=== PATIENT | female | born 1985 | race Caucasian/White ===

== ENCOUNTER → 2023-12-15 | Outpatient (CLI) | payer OTHER | LOC: DIA.ED 08:24 | DX: O24.419 Gestational diabetes mellitus in pregnancy, unspecified control (principal) ==

== ENCOUNTER → 2024-02-09 | Outpatient (CLI) | payer OTHER ==
[~2024-02-09] MED LIST: EUTHYROX175 MCG PO; PRENATA1 CTB PO; ZYRTEC 10MG10 MG PO
== END ==
LOC: DIA.ED 04:30
DX: O24.419 Gestational diabetes mellitus in pregnancy, unspecified control (principal)

== ENCOUNTER 2024-04-23 05:31 | Inpatient (IN) | payer OTHER ==
[~2024-04-23] VITALS: Ht 167.6 cm; Wt 107.7 kg
[2024-04-23] VITALS (17 sets, daily range): BP systolic 92–125; BP diastolic 46–106; PULSE 60–101; TEMP 97.9–98.4
--- NOTE | 2024-04-23 05:40 | NUR ---
0540 G1L0 PRIMARY ELECTIVE C/XECT TO 210. EFM ON. VS DONE. PERMITS SIGNED. IV LR STARTED AND LAB OBTAINED. STATES CONCERNS WITH FOB COMING TO UNIT TO SEE BABY. OFFERED TO BE NO INFO. UNSURE IF SHE WANTS THAT.
[2024-04-23] MEDS ORDERED: diphenhydrAMINE 50 MG/ML 1 ML VIAL IV PRN (05:45)
[2024-04-23] MEDS ORDERED: Ondansetron 4 MG/2 ML VIAL IV PRN ×2 (05:45→10:00)
[2024-04-23] MEDS ORDERED: droPERidol 2.5 MG/ML 2 ML VIAL IV PRN (05:45)
[2024-04-23] MEDS ORDERED: LR 1,000 ML IV SCH ×2 (05:45)
[2024-04-23 06:21] LABS: BASO % 0.4 % (0.0-2.0); EOS # 0.1 K/mm3 (0.0-0.7); EOS % 1.2 % (0.0-4.0); GRAN # 5.5 K/mm3 (1.4-6.5); GRAN % 65.1 % (42.2-75.2); HEMOGLOBIN 12.5 g/dl (12.5-16.0); LYMPH # 2.3 K/mm3 (1.2-3.4); LYMPH % 26.9 % (20.0-51.0); MEAN CELL VOLUME 79 fl (80.0-100.0); MEAN CORPUSCULAR HEMOGLOBIN 26 pg (27-31); MEAN CORPUSCULAR HGB CONC 33 g/dl (33.0-37.0); MEAN PLATELET VOLUME 11.4 fl (7.4-10.4); MONO # 0.5 K/mm3 (0.1-0.6); PLATELET COUNT 170 K/mm3 (130-400); REDCELL DISTRIBUTION WIDTH-CV 15.4 % (11.5-14.5)
[2024-04-23] MEDS ORDERED: Ondansetron 4 MG/2 ML VIAL ONE (07:02)
[2024-04-23] MEDS ORDERED: dexAMETHasone 10 MG/ML VIAL ONE (07:02)
[2024-04-23] MEDS ORDERED: Oxytocin 10 UNITS/ML VIAL ONE (07:02)
[2024-04-23] MEDS ORDERED: Ketorolac 30 MG/ML VIAL ONE (07:02)
[2024-04-23] MEDS ORDERED: NS 30 ML IV ONE (07:02)
[2024-04-23] MEDS ORDERED: EPINEPHrine 1 MG/1 ML Ampule ONE (08:00)
[2024-04-23] MEDS ORDERED: Loratadine 10 MG TAB PO PRN (08:30)
[2024-04-23] MEDS ORDERED: Magnes Hydrox (MOM) 80 MG/ML 30 ML CUP PO PRN (08:30)
--- NOTE | 2024-04-23 09:54 | NUR ---
SOHAN X3, ORTHOPEDIC RN AND X2IN OR FOR DELIVERY OF VIABLE FEMALE . PT TOLERATED WELL.
[2024-04-23] MEDS ORDERED: Measles/Mumps/Rubella Virus Vaccine Live w Diluent 0.5 ML VIAL SQ SCH (10:00)
[2024-04-23] MEDS ORDERED: Naloxone 0.4 MG/ML VIAL IV PRN (10:00)
[2024-04-23] MEDS ORDERED: LR 1,000 ML IV PRN (10:00)
[2024-04-23] MEDS ORDERED: oxyCODONE/Acetaminophen 5-325 MG TAB PO PRN (10:00)
[2024-04-23] MEDS ORDERED: Ibuprofen 800 MG TAB PO SCH (14:26)
[2024-04-23] MEDS ORDERED: Sennosides/Docusate 8.6-50 MG TAB PO SCH (17:00)
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
[2024-04-23] MEDS ORDERED: traZODone 50 MG TAB PO PRN (21:00)
[2024-04-24 00:10] VITALS: BP 120/67; PULSE 88; TEMP 97.9
[2024-04-24 04:30] VITALS: BP 117/69; PULSE 90; TEMP 98.6
[2024-04-24 07:10] VITALS: BP 118/74; PULSE 89; TEMP 97.7
[2024-04-24 17:00] VITALS: BP 128/81; PULSE 82; TEMP 97.8
[2024-04-24] MEDS ORDERED: EUTHYROX175 MCG PO (18:22)
[2024-04-24] MEDS ORDERED: PRENATA1 CTB PO (18:23)
[2024-04-24] MEDS ORDERED: ZYRTEC 10MG10 MG PO (18:23)
--- NOTE | 2024-04-24 19:05 | NUR ---
Patient takes her own Zyrtec and PNV at this time.
[2024-04-24 19:16] VITALS: BP 117/81; PULSE 96; TEMP 97.8
[2024-04-25 02:30] VITALS: BP 106/65; PULSE 81; TEMP 97.8
[2024-04-25 07:30] VITALS: BP 124/74; PULSE 83; TEMP 97.8
[2024-04-25 16:30] VITALS: BP 127/80; PULSE 89; TEMP 98
[2024-04-25 20:00] VITALS: BP 137/78; PULSE 91; TEMP 98.1
[2024-04-26 06:42] VITALS: BP 119/72; PULSE 97; TEMP 98.2
[2024-04-26 16:45] VITALS: BP 112/62; PULSE 75; TEMP 98.2
[2024-04-26 18:50] VITALS: BP 134/62; PULSE 117; TEMP 97.8
[2024-04-27 07:34] VITALS: BP 141/88; PULSE 105; TEMP 97.9
--- NOTE | 2024-04-27 14:53 | NUR ---
1440 PT GIVEN BOTH WRITTEN AND VERBAL DISCHARGE INSTRUCTIONS. PT EDUCATED ON WARNING SIGNS THAT WOULD REQUIRE HER TO BE SEEN BY A MEDICAL PROFESSIONAL. PT ENCOURAGED TO KEEP ALL PREVIOUSLY SCHEDULED FOLLOW UP APPOINTMENTS. PT VERBALIZES UNDERSTANDING AND HAS NO QUESTIONS AT THIS TIME.
--- NOTE | 2024-04-28 08:50 | NUR ---
On 04/27/24, social media executive met with patient per nursing request due to insurance concerns. Patient stated that they had resolved their issue and had no further concerns. Worker collaborated with nursing regarding the above information.
== END 2024-04-27 15:15 | disposition home or self-care (01) | DRG 788 ==
LOC: OB 05:31
PROVIDERS: ADMIT Obstetrics & Gynecology
PROC: 10D00Z1 Extraction of Products of Conception, Low, Open Approach (ICD-10-PCS; principal; 2024-04-23)
DX: O99.284 Endocrine, nutritional and metabolic diseases complicating childbirth (principal); Z37.0 Single live birth; O24.425 Gestational diabetes mellitus in childbirth, controlled by oral hypoglycemic drugs; E03.9 Hypothyroidism, unspecified; O99.213 Obesity complicating pregnancy, third trimester; O69.81X0 Labor and delivery complicated by cord around neck, without compression, not applicable or unspecified; Z3A.39 39 weeks gestation of pregnancy; Z79.890 Hormone replacement therapy; Z79.84 Long term (current) use of oral hypoglycemic drugs; Z79.4 Long term (current) use of insulin
CPT/HCPCS: A9284; J0171; J0665; J0690; J1100; J1885; J2405; J2590; J7120